=== PATIENT | female | born 1935 | race Caucasian/White ===

== ENCOUNTER 2022-11-11 09:10 | Emergency (ER) | payer OTHER ==
[~2022-11-11] VITALS: Ht 152.4 cm; Wt 52.2 kg
[2022-11-11 09:25] VITALS: BP_SYST 119
--- NOTE | 2022-11-11 09:25 | NUR ---
Patient to ER bed 8 to gown for evaluation. Side rails up. Report given to oHla VALDEZ.
--- NOTE | 2022-11-11 09:25 | NUR ---
PT BIB SON, AWAKE AND CONFUSED, AOX2. NO SOB OR DISTRESS. PT DENIES PAIN. PT HERE FOR MEDICAL CLEARANCE BEFORE SNF PLACEMENT AT [facility]. PT HAS HX OF HTN, DEMENTIA, HYPOTHYROIDISM.
--- NOTE | 2022-11-11 09:26 | NUR ---
ER at bedside examining patient.
--- NOTE | 2022-11-11 09:33 | NUR ---
Swabbed for COVID, sent to lab.
--- NOTE | 2022-11-11 09:38 | NUR ---
Swabbed foe MRSA, sent to lab.
[2022-11-11 09:53] LABS: BASOPHILS # (AUTO) 0.1 K/uL (0.0-0.2); BASOPHILS % (AUTO) 1.2 % (0.0-2.0); EOSINOPHILS # (AUTO) 0.1 K/uL (0.0-0.4); EOSINOPHILS % (AUTO) 1.8 % (0.0-4.0); HEMATOCRIT 35.4 % (36-48); HEMOGLOBIN 11.7 g/dL (12.0-16.0); LYMPHOCYTES # (AUTO) 1.5 K/uL (1.0-5.5); MEAN CORPUSCULAR HEMOGLOBIN 32 pg (27-31); MEAN CORPUSCULAR HGB CONC 33 % (32-36); MEAN CORPUSCULAR VOLUME 96 fL (79.0-98.0); MONOCYTES # (AUTO) 0.5 K/uL (0.0-1.0); MONOCYTES % (AUTO) 9.5 % (1.7-9.3); NEUTROPHILS # (AUTO) 2.9 K/uL (1.8-7.7); NEUTROPHILS % (AUTO) 58.5 % (40.0-70.0); PLATELET COUNT (AUTO) 147 K/uL (130-430); RED BLOOD CELL COUNT(AUTO) 3.68 MIL/uL (4.2-6.2); RED CELL DISTRIBUTION WIDTH 12.7 % (9.0-15.0)
[2022-11-11 10:01] LABS: ANION GAP 7 (5-15); CALCIUM 9.1 mg/dL (8.4-11.0); CHLORIDE 103 mmol/L (98-107); CREATININE 0.77 mg/dL (0.55-1.30); GLUCOSE 94 mg/dL (70-99); UREA NITROGEN, BLOOD 21 mg/dL (8-21)
[2022-11-11 10:05] LABS: ALANINE AMINOTRANSFERASE 14 U/L (12-78); ALBUMIN 3.5 g/dL (3.4-4.8); ASPARTATE AMINOTRANSFERASE 17 U/L (10-37); CHOLESTEROL 191 mg/dL (<200); HDL CHOLESTEROL 49 mg/dL (>55); LDL CHOLESTEROL 112 mg/dL (<100); TOTAL BILIRUBIN 0.6 mg/dL (0.0-1.0); TRIGLYCERIDES 128 mg/dL (30-150)
[2022-11-11 10:06] LABS: ACETAMINOPHEN < 1 ug/mL (1-30); ALCOHOL, BLOOD < 3 mg/dL (<10)
[2022-11-11 13:10] VITALS: BP_SYST 135
--- NOTE | 2022-11-11 13:12 | NUR ---
Patient given written and verbal discharge instructions and verbalizes understanding. ER MD DR RODRIGUEZ discussed with patient the results and treatment provided. Patient in stable condition. ID arm band removed. Patient educated on pain management and to follow up with PMD. Pain Scale 0/10. Opportunity for questions provided and answered. Medication side effect fact sheet provided.
== END 2022-11-11 13:10 | disposition home or self-care (01) ==
LOC: SED 09:10
DX: G30.9 Alzheimer's disease, unspecified (principal); F02.80 Dementia in other diseases classified elsewhere, unspecified severity, without behavioral disturbance, psychotic disturbance, mood disturbance, and anxiety; I10 Essential (primary) hypertension; Z79.899 Other long term (current) drug therapy; Z20.822 Contact with and (suspected) exposure to COVID-19
CPT/HCPCS: 99283; 87426; 80061; 80053; 85025; 87081; 36415; 83036; G0482; G0480; G0481